=== PATIENT | female | born 1965 | race African-American/Black ===

== ENCOUNTER 2017-05-26 10:30 | Day surgery (SDC) | payer OTHER ==
[~2017-05-26] VITALS: Ht 154.9 cm; Wt 57.2 kg
[~2017-05-26 10:30] MED LIST: CYCLOPENTOLATE HCL 2% 2 ML OPHTHALMIC SOLUTION ONE; DICLOFENAC SODIUM 0.1% 2.5 ML OPHTHALMIC SOLUTION ONE; MOXIFLOXACIN HCL 0.5% 3 ML OPHTHALMIC SOLUTION ONE; PHENYLEPHRINE HCL 2.5% 2 ML OPHTHALMIC SOLUTION ONE; RINGERS SOLUTION,LACTATED 500 ML IV ONE; TETRACAINE HCL/PF 0.5% 4 ML OPHTHALMIC SOLUTION ONE
[2017-05-26] MEDS ORDERED: ACETAMINOPHEN/CODEINE 300-30 MG TABLET PO PRN (10:45)
[2017-05-26] MEDS ORDERED: TETRACAINE HCL/PF 0.5% 4 ML OPHTHALMIC SOLUTION OD ONE (10:45)
[2017-05-26] MEDS ORDERED: SODIUM CHLORIDE 0.9% 500 ML IV ONE ×2 (10:47→11:00)
[2017-05-26] MEDS: PHENYLEPHRINE HCL 2.5% 2 ML OPHTHALMIC SOLUTION OD SCH ×3 (11:12→11:24)
[2017-05-26] MEDS: CYCLOPENTOLATE HCL 2% 2 ML OPHTHALMIC SOLUTION OD SCH ×3 (11:12→11:24)
[2017-05-26] MEDS: MOXIFLOXACIN HCL 0.5% 3 ML OPHTHALMIC SOLUTION OD SCH ×3 (11:12→11:33)
[2017-05-26] MEDS: DICLOFENAC SODIUM 0.1% 2.5 ML OPHTHALMIC SOLUTION OD SCH ×3 (11:12→11:33)
[2017-05-26 11:57] LABS: GLUCOSE,POINT OF CARE 133 MG/DL (70-110)
[2017-05-26] MEDS ORDERED: FentaNYL CITRATE-PF 100 MCG/2 ML VIAL IVP ONE (12:00)
[2017-05-26] MEDS ORDERED: MIDAZOLAM HCL 2 MG/2 ML VIAL IVP ONE (12:00)
[2017-05-26] MEDS ORDERED: AcetaZOLAMIDE 250 MG TABLET PO ONE (12:45)
[2017-05-26] MEDS ORDERED: AcetaZOLAMIDE 250 MG TABLET ONE (13:04)
== END 2017-05-26 13:40 | disposition home or self-care (01) ==
LOC: SURGERY 10:30
PROVIDERS: ATTEND Ophthalmology
DX: E11.36 Type 2 diabetes mellitus with diabetic cataract (principal); H25.11 Age-related nuclear cataract, right eye; E11.22 Type 2 diabetes mellitus with diabetic chronic kidney disease; I12.0 Hypertensive chronic kidney disease with stage 5 chronic kidney disease or end stage renal disease; D63.1 Anemia in chronic kidney disease; N18.6 End stage renal disease; Z99.2 Dependence on renal dialysis; Z98.890 Other specified postprocedural states
CPT/HCPCS: 66984; 82962; 93005; C1780; J2250; J3010; J7040; J7120

== ENCOUNTER 2017-08-25 08:03 | Day surgery (SDC) | payer OTHER ==
[~2017-08-25] VITALS: Ht 157.5 cm; Wt 60.0 kg
[~2017-08-25 08:03] MED LIST changes: -CYCLOPENTOLATE HCL 2% 2 ML OPHTHALMIC SOLUTION ONE; -DICLOFENAC SODIUM 0.1% 2.5 ML OPHTHALMIC SOLUTION ONE; -MOXIFLOXACIN HCL 0.5% 3 ML OPHTHALMIC SOLUTION ONE; -PHENYLEPHRINE HCL 2.5% 2 ML OPHTHALMIC SOLUTION ONE; -TETRACAINE HCL/PF 0.5% 4 ML OPHTHALMIC SOLUTION ONE
[2017-08-25] MEDS ORDERED: MIDAZOLAM HCL 2 MG/2 ML VIAL IVP ONE (08:04)
[2017-08-25] MEDS ORDERED: BRIMONIDINE TARTRATE 0.15% 5 ML OPHTHALMIC SOLUTION OS ONE (08:04)
[2017-08-25] MEDS ORDERED: POVIDONE-IODINE 10% 15 ML SOLUTION UD TP ONE (08:04)
[2017-08-25] MEDS ORDERED: LIDOCAINE HCL/PF 1% 2 ML VIAL INJ ONE (08:04)
[2017-08-25] MEDS ORDERED: TETRACAINE HCL VISCOUS 0.5% 0.6 ML OPHTHALMIC SOLUTION OS ONE (08:04)
[2017-08-25] MEDS ORDERED: HYALURONATE SODIUM 12 MG/ML 0.8 ML SYRINGE IO ONE (08:04)
[2017-08-25] MEDS ORDERED: HYALURONATE SOD/CHONDROITIN SOD 0.5 ML VIAL IO ONE (08:04)
[2017-08-25] MEDS ORDERED: EPINEPHrine 1:1,000 [1 MG/ML] AMP IM ONE (08:04)
[2017-08-25] MEDS ORDERED: TETRACAINE HCL/PF 0.5% 4 ML OPHTHALMIC SOLUTION ONE (08:07)
[2017-08-25] MEDS ORDERED: CYCLOPENTOLATE HCL 2% 2 ML OPHTHALMIC SOLUTION ONE (08:07)
[2017-08-25] MEDS ORDERED: KETOROLAC TROMETHAMINE 0.5% 5 ML OPHTHALMIC SOLUTION ONE (08:08)
[2017-08-25] MEDS ORDERED: MOXIFLOXACIN HCL 0.5% 3 ML OPHTHALMIC SOLUTION ONE (08:08)
[2017-08-25] MEDS ORDERED: PHENYLEPHRINE HCL 2.5% 2 ML OPHTHALMIC SOLUTION ONE (08:08)
[2017-08-25] MEDS ORDERED: RINGERS SOLUTION,LACTATED 0 ML IV ONE (08:09)
[2017-08-25] MEDS ORDERED: SODIUM CHLORIDE 0.9% 500 ML IV ONE ×2 (08:26→08:30)
[2017-08-25] MEDS: MOXIFLOXACIN HCL 0.5% 3 ML OPHTHALMIC SOLUTION OS SCH ×3 (08:45→09:09)
[2017-08-25] MEDS: KETOROLAC TROMETHAMINE 0.5% 5 ML OPHTHALMIC SOLUTION OS SCH ×3 (08:45→09:09)
[2017-08-25] MEDS: PHENYLEPHRINE HCL 2.5% 2 ML OPHTHALMIC SOLUTION OS SCH ×3 (08:45→09:02)
[2017-08-25] MEDS: CYCLOPENTOLATE HCL 2% 2 ML OPHTHALMIC SOLUTION OS SCH ×3 (08:45→09:02)
[2017-08-25] MEDS ORDERED: ATOR20TA86 PO (09:12)
[2017-08-25] MEDS ORDERED: ASPI-556 PO (09:12)
[2017-08-25] MEDS ORDERED: INSLAN SQ (09:12)
[2017-08-25] MEDS ORDERED: METO25 PO (09:12)
[2017-08-25] MEDS ORDERED: TETRACAINE HCL/PF 0.5% 4 ML OPHTHALMIC SOLUTION OS ONE (09:45)
[2017-08-25] MEDS ORDERED: AcetaZOLAMIDE 250 MG TABLET PO ONE (09:45)
[2017-08-25] MEDS ORDERED: ACETAMINOPHEN/CODEINE 300-30 MG TABLET PO PRN (09:45)
[2017-08-25] MEDS ORDERED: DICLOFENAC SODIUM 0.1% 2.5 ML OPHTHALMIC SOLUTION OS SCH (09:45)
[2017-08-25 10:10] LABS: GLUCOSE,POINT OF CARE 143 MG/DL (70-110)
[2017-08-25] MEDS ORDERED: AcetaZOLAMIDE 250 MG TABLET ONE (10:16)
== END 2017-08-25 10:50 | disposition home or self-care (01) ==
LOC: SURGERY 08:03
PROVIDERS: ATTEND Ophthalmology
DX: E11.36 Type 2 diabetes mellitus with diabetic cataract (principal); H25.042 Posterior subcapsular polar age-related cataract, left eye; E11.22 Type 2 diabetes mellitus with diabetic chronic kidney disease; I12.0 Hypertensive chronic kidney disease with stage 5 chronic kidney disease or end stage renal disease; N18.6 End stage renal disease; E78.00 Pure hypercholesterolemia, unspecified; Z79.82 Long term (current) use of aspirin; Z79.4 Long term (current) use of insulin
CPT/HCPCS: 66984; 82962; C1780; J0171; J2250; J3490 ×2; J7040; J7120